=== PATIENT | male | born 1960 | race Caucasian/White ===

== ENCOUNTER 2020-09-27 08:03 | Outpatient (REF) | payer MEDICAID, SELFPAY | END 2020-09-27 08:04 | disposition home or self-care (01) | LOC: HO.SCI 08:03 | DX: Z13.89 Encounter for screening for other disorder (principal) ==

== ENCOUNTER 2020-10-03 16:31 | Outpatient (REF) | payer MEDICARE, MEDICAID, SELFPAY ==
--- NOTE | 2020-10-03 | MR_ITS ---
EXAMINATION: MR THORACIC SPINE WITHOUT AND WITH CONTRAST CLINICAL INFORMATION: Myelopathy. COMPARISON: There are no prior studies available for comparison. TECHNIQUE: MRI of the thoracic spine was obtained using routine sequences with and without contrast. Intravenous contrast: Gadavist 7 mL. FINDINGS: VERTEBRAL BODIES AND PARASPINAL STRUCTURES: There is anatomic alignment of the vertebral bodies. There is narrowing of intervertebral disc height at multiple levels in the lower cervical spine and there are small posterior disc protrusions/disc osteophytes in the mid and lower cervical spine, which may contribute to central stenosis. These findings are subsequently visualized on the available images. In the thoracic spine there is multilevel narrowing of intervertebral disc height, most prominent in the mid and lower thoracic spine. There are mild degenerative endplate contour changes at multiple levels. There are slight edematous endplate signal changes with enhancement at T7-T8. There are Schmorl's nodes at multiple adjacent endplates in the mid and lower thoracic spine. There is a focus of increased T1 and T2 signal in the body of T12, most consistent with a hemangioma. Smaller foci are demonstrated in other vertebrae. Vertebral body heights are maintained. No fractures are demonstrated. Overall, marrow signal is homogenous. There is no significant abnormal osseous enhancement. The paravertebral and visualized posterior thoracic and superior retroperitoneal structures are unremarkable. The conus is at the level of L1-L2. Accounting for artifact, spinal cord signal appears normal. There is no abnormal intramedullary or leptomeningeal enhancement. SPINAL LEVELS: C7-T1: There is a small posterior disc protrusion which distorts the ventral thecal sac, without spinal cord compression or central stenosis. There are uncovertebral osteophytes. There is severe left and moderate right foraminal narrowing. T1-T2: There are small left and right paracentral disc protrusions with minimal distortion of the ventral thecal sac. There is no spinal cord compression or central stenosis. There is moderate bilateral foraminal narrowing. T2-T3: There are right greater than left paracentral disc protrusions with mild distortion of the ventral thecal sac. There is no spinal cord compression or central stenosis. There is moderate right foraminal narrowing. T3-T4 through T6-T7: Posterior disc contours are normal. There is no spinal cord compression or central stenosis. The neural foramina appear patent. T7-T8: There is a small left-sided disc protrusion with minimal distortion of the ventral thecal sac. There is no spinal cord compression or central stenosis. The neural foramina are patent bilaterally. T8-T9 through T11-T12: Posterior disc contours are normal. There is no spinal cord compression or central stenosis. The neural foramina appear patent. T12-L1: There is mild bilateral facet arthropathy. There is a left-sided disc protrusion with mild narrowing of the left subarticular recess, but there is no central stenosis. The neural foramina appear patent bilaterally. MR/MR thoracic spine wo/w con IMPRESSION: 1. There are no acute fractures or subluxations. There is no significant abnormal osseous enhancement, and there is no abnormal enhancement of the spinal cord or nerve roots. 2. There are severe spondylitic changes in the lower cervical spine, which are incompletely visualized. These could be further evaluated with MRI scan of the cervical spine. 3. Mild spondylitic changes are seen in the mid and upper thoracic spine, without spinal cord compression or central stenosis. There is multilevel foraminal narrowing as described above.
== END 2020-10-03 23:59 | disposition home or self-care (01) ==
LOC: HO.MRI 16:31
PROVIDERS: Visit Provider Psychiatry & Neurology Neurology
DX: G95.9 Disease of spinal cord, unspecified (principal)
CPT/HCPCS: 72157; A9585

== ENCOUNTER → 2021-01-13 08:38 | Outpatient (BNVA) | payer MEDICARE, MEDICAID, SELFPAY | PROVIDERS: PCP Internal Medicine; Visit Provider Anesthesiology | DX: C85.90 Non-Hodgkin lymphoma, unspecified, unspecified site (principal); M48.02 Spinal stenosis, cervical region; G99.2 Myelopathy in diseases classified elsewhere | CPT/HCPCS: 99202 ==